=== PATIENT | female | born 2000 | race Caucasian/White ===

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

== ENCOUNTER 2018-05-03 09:37 | Emergency (ER) | payer SELFPAY ==
[2018-05-03] MEDS ORDERED: Ibuprofen 800 MG TAB ONE (09:49)
== END 2018-05-03 10:25 | disposition home or self-care (01) ==
LOC: NAV ERS 09:37
DX: B34.9 Viral infection, unspecified (principal)
CPT/HCPCS: 99283